=== PATIENT | female | born 1970 | race Two or more races ===

== ENCOUNTER → 2025-06-05 | Outpatient (CLI) | payer BC, SELFPAY ==
--- NOTE | 2025-06-05 10:15 | XR_ITS ---
Examination: Diagnostic digital mammography, bilateral Computer aided detection 3-D breast Tomosynthesis, bilateral Date and time of exam: June 05, 2025 1016 hours Compared to mammograms dating to October 05, 2017 INDICATIONS: Patient states lump left breast 3 years Technique: Nonmagnified MLO, CC views of the breasts to been obtained, reconstructed from 3-D Tomosynthesis images. R2 computer aided detection program utilized for evaluation of suspicious masses and/or abnormal calcifications. 3-D Tomosynthesis images obtained. Findings: Scattered areas of fibroglandular density. Benign calcifications. 14 mm focal asymmetry is noted at the palpable lump site left breast Impression: BI-RADS Category 0: Incomplete: Need additional imaging evaluation Recommend this patient return for repeat left breast sonography with the radiologist in attendance.
== END | disposition home or self-care (01) ==
PROVIDERS: PCP Physician Assistant; Referring Provider Specialist; Visit Provider Specialist
DX: R92.8 Other abnormal and inconclusive findings on diagnostic imaging of breast (principal)
CPT/HCPCS: 77062; 77066; G0279

== ENCOUNTER → 2025-06-20 | Outpatient (CLI) | payer BC, SELFPAY ==
--- NOTE | 2025-06-20 09:00 | XR_ITS ---
Examination: Breast ultrasound, unilateral, left complete Date and time of exam: June 20, 2025 0922 hours INDICATIONS: Mammogram June 05, 2025 14 mm focal asymmetry left breast Technique: Real-time hoffman scale ultrasonographic imaging performed left breast including all 4 quadrants as well as nipple retroareolar and axillary region. Findings: No cystic or solid mass involving the left breast, retroareolar dilated ducts are present IMPRESSION: BI-RADS Category 2: Benign findings
== END | disposition home or self-care (01) ==
PROVIDERS: PCP Physician Assistant; Referring Provider Specialist; Visit Provider Specialist
DX: N63.25 Unspecified lump in the left breast, overlapping quadrants (principal)
CPT/HCPCS: 76641